=== PATIENT | female | born 1990 | race Caucasian/White ===

== ENCOUNTER 2025-06-22 10:46 | Outpatient (CLI) | payer MEDICAID | END 2025-06-22 10:47 | disposition home or self-care (01) | LOC: BURRAD 10:46 | PROVIDERS: ATTEND Family Medicine | DX: M51.362 Other intervertebral disc degeneration, lumbar region with discogenic back pain and lower extremity pain (principal); M47.816 Spondylosis without myelopathy or radiculopathy, lumbar region | CPT/HCPCS: 72110 ==